=== PATIENT | female | born 1985 | race Two or more races ===

== ENCOUNTER 2017-01-21 00:05 | Emergency (ER) | payer MEDICAID ==
[~2017-01-21] VITALS: Ht 175.3 cm; Wt 96.0 kg
[2017-01-21 05:59] VITALS: BP 132/74
[2017-01-21] MEDS ORDERED: KETOROLAC 30MG/ML VIAL IM ONE (06:00)
== END 2017-01-21 06:00 | disposition home or self-care (01) ==
LOC: ER 00:18
DX: M54.5 Low back pain (principal); V89.2XXA Person injured in unspecified motor-vehicle accident, traffic, initial encounter; Y93.89 Activity, other specified; Y92.89 Other specified places as the place of occurrence of the external cause; R03.0 Elevated blood-pressure reading, without diagnosis of hypertension
CPT/HCPCS: 96372; 99283; J1885; Z7610